=== PATIENT | male | born 1955 | race Caucasian/White ===

== ENCOUNTER 2021-09-19 21:38 | Emergency (ER) | payer OTHER ==
[2021-09-19] MEDS ORDERED: NA CHLORIDE 0.9% 1,000 ML ONE (22:04)
--- NOTE | 2021-09-19 22:04 | RAD REPORT ---
EXAM DESCRIPTION: Lele Single View09/19/2021 9:55 pm CLINICAL HISTORY: Chest pain COMPARISON: none FINDINGS: The left base is hazy. Remainder lungs appear clear. Heart is normal size IMPRESSION: Left base is hazy most likely secondary to overlying soft tissue less likely pathology. If clinically indicated further evaluation with PA and lateral chest series be obtained
--- NOTE | 2021-09-19 22:14 | RAD REPORT ---
EXAM DESCRIPTION: CT - Head Brain Wo Cont - 09/19/2021 10:03 pm CLINICAL HISTORY: Dizziness COMPARISON: None TECHNIQUE: Computed axial tomography of the head was obtained. IV contrast was not requested. All CT scans are performed using dose optimization technique as appropriate and may include automated exposure control or mA/KV adjustment according to patient size. FINDINGS: Several hypodense areas are present within the right temporal, right frontal, right occipi regina and right parietal lobes. Right basal ganglia and right internal capsule also involves. These rep resent lesions surrounded by vasogenic edema. The right lateral ventricle is compressed. There is shift of the midline structures 8 millimeters. An intracranial bleed is not noted Fluid within the sinuses/ mastoids is not seen. IMPRESSION: The patient most likely has metastases with surrounding vasogenic edema. MRI brain with contrast is recommended for further evaluation.
[2021-09-19 22:44] LABS: Absolute Lymphocytes (CBC) 2.7 K/uL (0.7-4.9); Hematocrit 44.9 % (39.6-49.0); Lymphocytes % 28.8 % (15.3-44.8); MCV 91.2 fL (80-100); MPV 9.5 fL (7.6-11.3); RBC Red Blood Cell Count 4.92 M/uL (4.33-5.43)
[2021-09-19] MEDS ORDERED: dexAMETHasone 10 MG/ML VIAL ONE (22:59)
[2021-09-19 23:03] LABS: Potassium 3.6 mmol/L (3.5-5.1); Troponin High Sensitivity 7.1 pg/mL (<58.9)
--- NOTE | 2021-09-19 23:19 | EDPHYS ---
Physician Documentation [facility] Name: Antoine Ledezma Jr Age: 66 yrs Sex: Male : 1955 Arrival Date: 09/19/2021 Time: 21:39 Bed 7 Private MD: ED Physician Gary Valdez HPI: 09/19 21:49 This 66 yrs old Male presents to ER via EMS with complaints of Feeling light headed and jl9 falling. Patient reports that he has been in the heat the last few days and had not had anything to eat when the incident occured. Patient denies LOC. . 21:49 Onset: The symptoms/episode began/occurred just prior to arrival. Severity of symptoms: jl9 Pain is currently a 0 / 10. Patient reports feeling better at this time. . 23:16 Patient recalls that he had a similar episode 1 week ago. . jl9 Historical: - Allergies: 21:41 PENICILLINS; aa9 - PMHx: 21:41 Hypertensive disorder; Diabetes mellitus; aa9 - Immunization history:: Client reports receiving the 2nd dose of the Covid vaccine. - Social history:: Smoking status: unknown. ROS: 21:50 Constitutional: Negative for fever, chills, and weight loss, Eyes: Negative for injury, jl9 pain, redness, and discharge, ENT: Negative for injury, pain, and discharge, Neck: Negative for injury, pain, and swelling, Cardiovascular: Negative for chest pain, palpitations, and edema, Respiratory: Negative for shortness of breath, cough, wheezing, and pleuritic chest pain, Abdomen/GI: Negative for abdominal pain, nausea, vomiting, diarrhea, and constipation, Back: Negative for injury and pain, MS/Extremity: Negative for injury and deformity, Skin: Negative for injury, rash, and discoloration. 21:50 Neuro: Negative for altered mental status, dizziness, gait disturbance, syncope, tingling. 21:51 Psych: Negative for depression, anxiety, suicide ideation, homicidal ideation, and jl9 hallucinations, Allergy/Immunology: Negative for hives, rash, and allergies, Endocrine: Negative for neck swelling, polydipsia, polyuria, polyphagia, and marked weight changes, Hematologic/Lymphatic: Negative for swollen nodes, abnormal bleeding, and unusual bruising. Exam: 21:51 Constitutional: This is a well developed, well nourished patient who is awake, alert, jl9 and in no acute distress. Head/Face: Normocephalic, atraumatic. Eyes: Pupils equal round and reactive to light, extra-ocular motions intact. Lids and lashes normal. Conjunctiva and sclera are non-icteric and not injected. Cornea within normal limits. Periorbital areas with no swelling, redness, or edema. ENT: Mucous membranes moist. Neck: Trachea midline, no thyromegaly or masses palpated, and no cervical lymphadenopathy. Supple, full range of motion without nuchal rigidity, or vertebral point tenderness. No Meningismus. Chest/axilla: Normal chest wall appearance and motion. Nontender with no deformity. No lesions are appreciated. Cardiovascular: Regular rate and rhythm with a normal S1 and S2. No gallops, murmurs, or rubs. Normal PMI, no JVD. No pulse deficits. Respiratory: Lungs have equal breath sounds bilaterally, clear to auscultation and percussion. No rales, rhonchi or wheezes noted. No increased work of breathing, no retractions or nasal flaring. Abdomen/GI: Soft, non-tender, with normal bowel sounds. No distension or tympany. No guarding or rebound. No evidence of tenderness throughout. Back: No spinal tenderness. No costovertebral tenderness. Full range of motion. Skin: Warm, dry with normal turgor. Normal color with no rashes, no lesions, and no evidence of cellulitis. MS/ Extremity: Pulses equal, no cyanosis. Neurovascular intact. Full, normal range of motion. Neuro: Awake and alert, GCS 15, oriented to person, place, time, and situation. Cranial nerves II-XII grossly intact. Motor strength 5/5 in all extremities. Sensory grossly intact. Cerebellar exam normal. Normal gait. Psych: Awake, alert, with orientation to person, place and time. Behavior, mood, and affect are within normal limits. 22:25 Chest/axilla: jl9 22:25 ECG was reviewed by the Attending Physician. SB 56 BPM Vital Signs: 21:39 BP 137 / 77; Pulse 60; Resp 15 S; Temp 98.1(O); Pulse Ox 97% on R/A; Weight 113.4 kg tw5 (R); Height 6 ft. 1 in. (185.42 cm) (R); Pain 0/10; 21:43 BP 137 / 77; Pulse 60; Resp 15; Temp 98.1(O); Pulse Ox 97% on R/A; Weight 113.4 kg (R); aa9 Height 6 ft. 1 in. (185.42 cm) (R); Pain 0/10; 23:05 BP 145 / 72; Pulse 57; Resp 15 S; Pulse Ox 96% on R/A; as6 21:43 Body Mass Index 32.98 (113.40 kg, 185.42 cm) aa9 MDM: 21:44 Patient medically screened. jl9 21:52 Data reviewed: vital signs, nurses notes. jl9 23:13 Counseling: I had a detailed discussion with the patient and/or guardian regarding: the jl9 historical points, exam findings, and any diagnostic results supporting the discharge/admit diagnosis, lab results, radiology results, the need to transfer to another facility, for higher level of care, to return to the emergency department if symptoms worsen or persist or if there are any questions or concerns that arise at home, Discussed findings of CT with patient and the need for transfer. Dr. Valdez also spoke to the patient. The patient adamantly declines the transfer and wishes to go home. Patient aware of the possibility of and /or neurological damage. Patient still wants to go home. . Refusal of service: The patient/guardian displays adequate decision making capability and despite a detailed discussion of alternatives, benefits, risks, and consequences refuses: Admission to the hospital for further work-up and treatment. 23:36 ED course: Spoke with patient at length regarding abnormal ct head and findings rn consistent with possible masses and possibility of metastases. Explained at length the need for admission/transfer/steroids, and explained possibilities of worsening and even if went home like he wants to. ASPEN posada also spoke with him on several occasions and patient insists that he is going home. States he does not have hx of cancer or family hx of cancer and does not believe this to be cancer. Has appt with PCP in AM and would like to f/u. States will return if anything worsens. Pt signed AMA form, but was informed discharge. Understands risks and benefits of transfer vs going home and still would like to go home. Images even shown to patient. Nursing also spoke to patient and refuses further care or transfer. . 09/20 16:06 ED course: Patient called and requested his daughter be informed of his CT scans, ms3 chart, and labs. Called Jocelin Ledezma at to discuss CT results and encouraged her to have her father return to [facility] or [facility]. Discussed with her that her father is predisposed to seizures due to lesions in his brain and should not drive, operate heavy machinery, take a bath, or place himself in harms way. Daughter states she would like to have a neurologist review his CT. Patient's daughter transferred to medical records.. 09/19 21:46 Order name: Basic Metabolic Panel; Complete Time: 15:50 09/19 21:46 Order name: CBC with Diff; Complete Time: 22:54 09/19 21:46 Order name: CT Head Brain wo Cont; Complete Time: 22:28 09/19 21:46 Order name: Troponin HS; Complete Time: 15:50 09/19 21:46 Order name: XRAY Chest (1 view); Complete Time: 22:28 09/19 22:45 Order name: COVID-19 SARS RT PCR (Document "Date of Onset" if Symptomatic); Complete bb Time: 15:50 09/19 21:46 Order name: EKG; Complete Time: 21:47 09/19 21:46 Order name: Cardiac monitoring; Complete Time: 21:57 09/19 21:46 Order name: EKG - Nurse/Tech; Complete Time: 22:20 09/19 21:46 Order name: IV Saline Lock; Complete Time: 22:20 09/19 21:46 Order name: Labs collected and sent; Complete Time: 22:20 09/19 21:46 Order name: O2 Per Protocol; Complete Time: 21:57 09/19 21:46 Order name: O2 Sat Monitoring; Complete Time: 21:57 Administered Medications: 09/19 12:17 Drug: NS 0.9% 1000 ml Route: IV; Rate: 125 ml/hr; Site: right antecubital; aa9 22:53 Drug: Decadron - Dexamethasone 10 mg Route: IVP; Site: right antecubital; as6 Disposition: 09/20 04:25 Co-signature as Attending Physician, Gary Valdez MD. rn Disposition Summary: 09/19/21 23:18 Discharge Ordered Location: Home jl9 Condition: Serious jl9 Diagnosis - Abnormal brain scan jl9 Followup: jl9 - With: Private Physician - When: Upon discharge from the Emergency Department - Reason: Worsening of condition, Further diagnostic work-up, Continuance of care, Re-evaluation by your physician Discharge Instructions: - Discharge Summary Sheet jl9 - Cerebral Edema, Adult jl9 - Metastatic Brain Tumor, Adult jl9 Forms: - Medication Reconciliation Form jl9 - Thank You Letter jl9 - Antibiotic Education jl9 - Prescription Opioid Use jl9 Prescriptions: - Medrol (Salvatore) 4 mg Oral Tablets, Dose Pack - take 1 tablet by ORAL route as directed - follow package instructions; 1 jl9 packet; Refills: 0, Product Selection Permitted Signatures: Dispatcher [employer] EDGary Estrada MD MD rn Sims, Marcus, DO DO ms3 Danielle Love tw5 Vikram Pires RN RN as6 Simba Posada jl9 Hanna Tran, MIKAEL RN aa9 Corrections: (The following items were deleted from the chart) 09/19 21:43 21:41 Allergies: No Known Allergies; aa9 aa9
--- NOTE | 2021-09-19 23:19 | ER ---
Nurse's Notes [facility] Name: Antoine Ledezma Jr Age: 66 yrs Sex: Male : 1955 Arrival Date: 09/19/2021 Time: 21:39 Bed 7 Private MD: Diagnosis: Abnormal brain scan Presentation: 09/19 21:39 Chief complaint: Patient states: lost my balance and fell over the curb. Coronavirus tw5 screen: Vaccine status: Patient reports receiving the 2nd dose of the covid vaccine. At this time, the client does not indicate any symptoms associated with coronavirus-19. Ebola Screen: No symptoms or risks identified at this time. Initial Sepsis Screen: Does the patient meet any 2 criteria? No. Patient's initial sepsis screen is negative. Does the patient have a suspected source of infection? No. Patient's initial sepsis screen is negative. Risk Assessment: Do you want to hurt yourself or someone else? Patient reports no desire to harm self or others. Onset of symptoms was September 19, 2021. 21:39 Method Of Arrival: EMS: [facility] tw5 21:39 Acuity: AWA 3 tw5 21:39 Note EMS states client spun around looking for his car and tripped over the curb. aa9 Bystander states he hit his head on the concrete. Client recalls events, denies head pain. Currently denies dizziness. Triage Assessment: 21:43 General: Appears in no apparent distress. comfortable, unkempt, Behavior is calm, aa9 cooperative. Pain: Denies pain. Historical: - Allergies: 21:41 PENICILLINS; aa9 - PMHx: 21:41 Hypertensive disorder; Diabetes mellitus; aa9 - Immunization history:: Client reports receiving the 2nd dose of the Covid vaccine. - Social history:: Smoking status: unknown. Screenin/19 00:01 Abuse screen:. Abuse screen: Denies threats or abuse. Denies injuries from another. tw5 Nutritional screening: No deficits noted. Tuberculosis screening: No symptoms or risk factors identified. Fall Risk Fall in past 12 months (25 points). Assessment: 09/19 21:52 General: Appears in no apparent distress. comfortable, unkempt, Behavior is calm, aa9 cooperative. Pain: Denies pain. Vital Signs: 21:39 BP 137 / 77; Pulse 60; Resp 15 S; Temp 98.1(O); Pulse Ox 97% on R/A; Weight 113.4 kg tw5 (R); Height 6 ft. 1 in. (185.42 cm) (R); Pain 0/10; 21:43 BP 137 / 77; Pulse 60; Resp 15; Temp 98.1(O); Pulse Ox 97% on R/A; Weight 113.4 kg (R); aa9 Height 6 ft. 1 in. (185.42 cm) (R); Pain 0/10; 23:05 BP 145 / 72; Pulse 57; Resp 15 S; Pulse Ox 96% on R/A; as6 21:43 Body Mass Index 32.98 (113.40 kg, 185.42 cm) aa9 ED Course: 21:39 Patient arrived in ED. as6 21:41 Triage completed. tw5 21:41 Hanna Tran, RN is Primary Nurse. aa9 21:42 Simba Hernandez is PHCP. jl9 21:42 Gary Valdez MD is Attending Physician. jl9 21:57 XRAY Chest (1 view) In Process Unspecified. EDMS 22:04 CT Head Brain wo Cont In Process Unspecified. EDMS 22:15 Inserted saline lock: 18 gauge in right antecubital area, using aseptic technique. aa9 Blood collected. 22:20 Basic Metabolic Panel Sent. aa9 22:20 CBC with Diff Sent. aa9 22:20 Troponin HS Sent. aa9 09/20 00:01 Assist provider with bone marrow aspiration. IV discontinued, intact, bleeding tw5 controlled, No redness/swelling at site. Pressure dressing applied. 00:02 Arm band placed on right wrist. tw5 00:02 Patient has correct armband on for positive identification. tw5 Administered Medications: 09/19 12:17 Drug: NS 0.9% 1000 ml Route: IV; Rate: 125 ml/hr; Site: right antecubital; aa9 22:53 Drug: Decadron - Dexamethasone 10 mg Route: IVP; Site: right antecubital; as6 Medication: 09/20 00:02 VIS not applicable for this client. tw5 Outcome: 09/19 23:18 Discharge ordered by . jl9 09/20 00:02 Discharged to home ambulatory, with taxi tw5 Condition: unchanged Discharge instructions given to patient, Instructed on discharge instructions, follow up and referral plans. Demonstrated understanding of instructions, follow-up care, medications, Prescriptions given X 1. 00:02 Patient left the ED. tw5 Signatures: Dispatcher [employer] HEIDIDanielle Patterson tw5 Vikram Pires RN RN as6 Simab Hernandez jl9 Hanna Tran, RN RN aa9 Corrections: (The following items were deleted from the chart) 09/19 21:43 21:41 Allergies: No Known Allergies; aa9 aa9
[2021-09-20 00:14] VITALS: TEMP 98.1
[2021-09-20 00:17] VITALS: BP 145/72; O2SAT 96
--- NOTE | 2021-09-20 08:14 | EKG ---
Test Date: 2021-09-19 Test Time: 22:13:00 Loss Prevention Analyst: GIUSEPPE MEASUREMENT RESULTS: Intervals: Rate: 56 IN: 182 QRSD: 100 QT: 442 QTc: 426 [place]: P: 39 IN: 182 QRS: -32 T: 50 INTERPRETIVE STATEMENTS: Sinus bradycardia Left axis deviation Incomplete right bundle branch block Left ventricular hypertrophy with repolarization abnormality Abnormal ECG No previous ECG available for comparison Electronically Signed On 09-20-21 08:12:27 CDT by Hernesto Patiño
== END 2021-09-20 00:02 | disposition home or self-care (01) ==
LOC: ER 21:38
DX: R94.02 Abnormal brain scan (principal); E11.9 Type 2 diabetes mellitus without complications; I10 Essential (primary) hypertension; Z20.822 Contact with and (suspected) exposure to COVID-19; Z88.0 Allergy status to penicillin
CPT/HCPCS: 93005; 85025; 80048; 36415; 84484; 70450; 71045; 96374; 99285; U0003; J1100; J7030

== ENCOUNTER 2021-09-21 12:56 | Emergency (ER) | payer OTHER ==
--- NOTE | 2021-09-21 13:27 | EDPHYS ---
Physician Documentation [facility] Name: Antoine Ledezma Jr Age: 66 yrs Sex: Male : 1955 Arrival Date: 09/21/2021 Time: 12:57 Bed 6 Private MD: ED Physician Tristin Little HPI: 09/21 13:39 This 66 yrs old Male presents to ER via Unassigned with complaints of Weakness, ms3 fatigue, Vomiting. 13:40 The patient presents to the emergency department with nausea, vomiting. Onset: The ms3 symptoms/episode began/occurred today. Possible causes: Possible brain metastasis noted on CT Head on 09/20/2021. The symptoms are aggravated by nothing. The symptoms are alleviated by nothing. Associated signs and symptoms: Pertinent negatives: fever. Severity of symptoms: At their worst the symptoms were mild in the emergency department the symptoms are unchanged Pain is currently a 0 / 10. Historical: - Allergies: 13:47 PENICILLINS; bm7 - Home Meds: 13:47 Unable to obtain [Active]; bm7 - PMHx: 13:47 diabetes mellitus; Hypertensive disorder; bm7 - Immunization history:: Adult Immunizations unknown. - Social history:: Smoking status: Patient/guardian denies using. - Code Status:: unknown. ROS: 13:40 Constitutional: Negative for fever, and chills. Eyes: Negative for injury, pain, ms3 redness, and discharge, Neck: Negative for injury, pain, and swelling, Cardiovascular: Negative for chest pain, and palpitations. Respiratory: Negative for shortness of breath, cough, wheezing, and pleuritic chest pain. 13:40 Abdomen/GI: Positive for nausea and vomiting. 13:40 MS/extremity: Positive for Generalized weakness. 13:40 Neuro: Positive for headache. Exam: 13:40 Constitutional: This is a well developed, well nourished patient who is awake, alert, ms3 and in no acute distress. Head/Face: Normocephalic, atraumatic. Neck: Trachea midline, no cervical lymphadenopathy. Supple, full range of motion without nuchal rigidity, or vertebral point tenderness. No Meningismus. Chest/axilla: Normal chest wall appearance and motion. Nontender with no deformity. Cardiovascular: Regular rate and rhythm with a normal S1 and S2. No gallops, murmurs, or rubs. Normal PMI, no JVD. No pulse deficits. Respiratory: Lungs have equal breath sounds bilaterally, clear to auscultation and percussion. No rales, rhonchi or wheezes noted. No increased work of breathing, no retractions or nasal flaring. Abdomen/GI: Soft, non-tender, with normal bowel sounds. No distension or tympany. No guarding or rebound. No evidence of tenderness throughout. Skin: Warm, dry with normal turgor. Normal color with no rashes, no lesions, and no evidence of cellulitis. Psych: Awake, alert, with orientation to person, place and time. Behavior, mood, and affect are within normal limits. 14:03 ECG was reviewed by the Attending Physician. ms3 Vital Signs: 13:43 BP 138 / 79; Pulse 50; Resp 16; Temp 97.7(TE); Pulse Ox 97% on R/A; Weight 113.4 kg bm7 (R); Height 6 ft. 1 in. (185.42 cm); Pain 0/10; 15:05 BP 110 / 63; Pulse 48; Resp 16; Pulse Ox 97% on R/A; jg9 15:59 BP 127 / 81; Pulse 46; Resp 16; Pulse Ox 97% on R/A; kr3 13:43 Body Mass Index 32.98 (113.40 kg, 185.42 cm) bm7 NIH Stroke Scale Scores: 14:06 NIHSS Score: 0 ll1 MDM: 13:27 Patient medically screened. ms3 13:40 Differential diagnosis: gastritis, gastroenteritis, Brain metastasis. ms3 14:23 Data reviewed: vital signs, nurses notes, lab test result(s), and as a result, I will ms3 transfer patient. Counseling: I had a detailed discussion with the patient and/or guardian regarding: the historical points, exam findings, and any diagnostic results supporting the discharge/admit diagnosis, lab results, the need to transfer to another facility. ED course: [facility] at capacity at this time. Discussed transfer to [facility] with patient and his daughter and they understand/ agree with plan.. 09/21 13:27 Order name: Basic Metabolic Panel; Complete Time: 14:08 ms3 09/21 13:27 Order name: CBC with Diff; Complete Time: 14:08 ms3 09/21 13:27 Order name: EKG; Complete Time: 13:28 ms3 09/21 14:07 Order name: Glucose, Ancillary Testing; Complete Time: 14:08 EDMS 09/21 13:27 Order name: Cardiac monitoring; Complete Time: 13:52 ms3 09/21 13:27 Order name: IV Saline Lock; Complete Time: 13:52 ms3 09/21 13:27 Order name: Labs collected and sent; Complete Time: 13:52 ms3 09/21 13:27 Order name: O2 Per Protocol; Complete Time: 13:56 ms3 09/21 13:27 Order name: O2 Sat Monitoring; Complete Time: 13:52 ms3 EC:03 Rate is 45 beats/min. Rhythm is regular. QRS [place] is Normal. Clinical impression: Sinus ms3 bradycardia. Interpreted by me. Reviewed by me. Administered Medications: 14:05 Drug: Dexamethasone 10 mg Route: IVP; Site: right antecubital; ll1 16:03 Follow up: Response: No adverse reaction jg9 Point of Care Testing: Blood Glucose: 16:06 Blood Glucose: 137 mg/dL; kr3 Ranges: Critical Glucose Levels:Adult <50 mg/dl or >400 mg/dl <40 mg/dl or >180 mg/dl Disposition Summary: 09/21/21 13:27 Transfer Ordered Transfer Location: [facility] ms3 Reason: Higher level of care ms3 Condition: Stable ms3 Problem: new ms3 Symptoms: are unchanged ms3 Accepting Physician: (09/21/21 16:09) kr3 Diagnosis - Brain tumor ms3 Forms: - Medication Reconciliation Form ms3 - SBAR form ms3 NIH Stroke Scale - NIH Stroke Score Date: 09/21/2021 Time: 14:06 Total Score = 0 1a. Level of Consciousness (LOC) - 0(Alert) 1b. Level of Consciousness (LOC) (Month \T\ Age) - 0(Both) 1c. LOC Commands (Open \T\ Closes Eyes/V[employer]) - 0(Both) 2. Best Gaze (Lateral Gaze Paresis) - 0(Normal) 3. Visual Field Loss - 0(No visual loss) 4. Facial Palsy - 0(Normal) 5a. Left Arm: Motor (10-second hold) - 0(No drift) 5b. Right Arm: Motor (10-second hold) - 0(No drift) 6a. Left Leg: Motor (5-second hold - always test supine) - 0(No drift) 6b. Right Leg: Motor (5-second hold - always test supine) - 0(No drift) 7. Limb Ataxia (finger/nose \T\ heel/sharma - test with eyes open) - 0(Absent) 8. Sensory Loss (pinprick arms/legs/face) - 0(Normal) 9. Best Language: Aphasia (description/naming/reading) - 0(No aphasia) 10. Dysarthria (speech clarity - read or repeat words) - 0(Normal) 11. Extinction and Inattention (visual/tactile/auditory/spatial/personal) - 0(No abnormality) Initials: ll1 Signatures: Dispatcher [employer] Wenceslao Heck, RN RN ll1 Tristin Little DO DO ms3 Erum Almeida RN RN bm7 Juanita Sapp RN RN kr3 Jocelin Manriquez RN jg9 Corrections: (The following items were deleted from the chart) 16:09 13:27 ms3 kr3
[2021-09-21 13:55] LABS: Absolute Lymphocytes (CBC) 2.7 K/uL (0.7-4.9); Hematocrit 47.5 % (39.6-49.0); Lymphocytes % 26.6 % (15.3-44.8); MCV 93.3 fL (80-100); MPV 9.6 fL (7.6-11.3); RBC Red Blood Cell Count 5.09 M/uL (4.33-5.43)
[2021-09-21 14:03] LABS: Potassium 3.9 mmol/L (3.5-5.1)
[2021-09-21] MEDS ORDERED: dexAMETHasone 10 MG/ML VIAL ONE (14:05)
--- NOTE | 2021-09-21 16:10 | ER ---
Nurse's Notes [facility] Name: Antoine Ledezma Jr Age: 66 yrs Sex: Male : 1955 Arrival Date: 09/21/2021 Time: 12:57 Bed 6 Private MD: Diagnosis: Brain tumor Presentation: 09/21 13:43 Chief complaint: Patient states: Daughter states he was admitted yesterday for an bm7 abnormal brain scan and he left AMA. He has been confused since I arrived and I am concerned.. Coronavirus screen: Client denies travel out of the [place] in the last 14 days. Ebola Screen: No symptoms or risks identified at this time. Onset of symptoms was September 20, 2021 at 08:00. Care prior to arrival: pt left the hospital AMA yesterday. 13:43 Method Of Arrival: Wheelchair bm7 13:43 Acuity: AWA 2 bm7 14:07 No acute neurological deficit is noted. The patients blood glucose was checked before ll1 arriving to the hospital and was found to be normal. Initial Sepsis Screen: Does the patient meet any 2 criteria? No. Patient's initial sepsis screen is negative. Does the patient have a suspected source of infection? No. Patient's initial sepsis screen is negative. Risk Assessment: Do you want to hurt yourself or someone else? Patient reports no desire to harm self or others. Triage Assessment: 13:47 The onset of the patients symptoms was more than six hours ago. General: Appears in no bm7 apparent distress. unkempt, Behavior is calm, cooperative, slight confusion and a delay in speech . Pain: Denies pain. EENT: No deficits noted. No signs and/or symptoms were reported regarding the EENT system. Neuro: Level of Consciousness is awake, alert, confused, Oriented to person, place, intermittent confusion . Speech slight intermittent slurring . Facial symmetry appears normal, Pupils are PERRLA, Reports dizziness, since yesteday nausea. Cardiovascular: Heart tones S1 S2 Capillary refill < 3 seconds Patient's skin is warm and dry. Rhythm is sinus bradycardia. Respiratory: No deficits noted. GI: Abdomen is round non-distended. : No deficits noted. No signs and/or symptoms were reported regarding the genitourinary system. Derm: No deficits noted. No signs and/or symptoms reported regarding the dermatologic system. 16:03 The onset of the patients symptoms was. jg9 16:05 The onset of the patients symptoms was September 18, 2021 at 07:00. kr3 Stroke Activation: Symptom onset > 6 hours Physician: Stroke Attending; Name: ; Notified At: ; Arrived At: Physician: Chief Stroke Resident; Name: ; Notified At: ; Arrived At: Physician: Stroke Resident; Name: ; Notified At: ; Arrived At: Physician: ED Attending; Name: ; Notified At: ; Arrived At: Physician: ED Resident; Name: ; Notified At: ; Arrived At: Historical: - Allergies: 13:47 PENICILLINS; bm7 - Home Meds: 13:47 Unable to obtain [Active]; bm7 - PMHx: 13:47 diabetes mellitus; Hypertensive disorder; bm7 - Immunization history:: Adult Immunizations unknown. - Social history:: Smoking status: Patient/guardian denies using. - Code Status:: unknown. Screenin:07 Abuse screen: Denies threats or abuse. Nutritional screening: No deficits noted. ll1 Tuberculosis screening: No symptoms or risk factors identified. Fall Risk IV access (20 points). Total Major Fall Scale indicates No Risk (0-24 pts). Assessment: 14:06 VAN Scoring: Arm Drift: Patients demonstrates NO arm weakness. Patient is VAN Negative. ll1 Aphasia: No aphasia noted. Patient has been NPO before screening. The patient is alert, and able to follow commands. The patient does not exhibit slurred or garbled speech. The patient is not exhibiting difficulty speaking. The patient does not exhibit difficulty understanding words. The patient is able to swallow own secretions with no drooling or need for suction. TNKase (Tenecteplase) Screening: Contraindications: Coma, severe obtundation, fixed pupils, deviation, or complete hemiplegia: Yes. 14:57 Patient tolerated one teaspoon of water. No drooling, immediate coughing, gurgling, or kr3 clearing of the throat was noted. The patient tolerated 90mL of water. No drooling, immediate coughing, gurgling, or clearing of the throat was noted. The patient passed the bedside swallow screening. Oral medications may be given as ordered. Contact Physician for further diet orders. 15:05 Reassessment: No changes from previously documented assessment. Patient and/or family jg9 updated on plan of care and expected duration. Pain level reassessed. 16:06 Provider notified of bedside swallow screening results: Tristin Little DO. kr3 Vital Signs: 13:43 BP 138 / 79; Pulse 50; Resp 16; Temp 97.7(TE); Pulse Ox 97% on R/A; Weight 113.4 kg bm7 (R); Height 6 ft. 1 in. (185.42 cm); Pain 0/10; 15:05 BP 110 / 63; Pulse 48; Resp 16; Pulse Ox 97% on R/A; jg9 15:59 BP 127 / 81; Pulse 46; Resp 16; Pulse Ox 97% on R/A; kr3 13:43 Body Mass Index 32.98 (113.40 kg, 185.42 cm) bm7 NIH Stroke Scale Scores: 14:06 NIHSS Score: 0 ll1 ED Course: 12:57 Patient arrived in ED. as 12:59 Bailey [facility]ck[facility]C [facility] kb 12:59 Tristin Little DO is Attending Physician. kb 13:26 Tristin Little DO is Attending Physician. ms3 13:34 Arm band placed on Patient placed in an exam room, on a stretcher. ll1 13:42 Jocelin Manriquez, MIKAEL is Primary Nurse. jg9 13:47 Triage completed. bm7 13:50 Patient has correct armband on for positive identification. Placed in gown. Call light bm7 in reach. Adult w/ patient. Client placed on continuous cardiac and pulse oximetry monitoring. NIBP monitoring applied. quality assurance monitor final on. 13:50 Initial lab(s) drawn, by nj, sent to lab. Inserted saline lock: 20 gauge in right bm7 antecubital area, using aseptic technique. Blood collected. 13:56 Wenceslao Mccallum, RN is Primary Nurse. ll1 14:13 initiated transfer to [facility]. bd 14:23 pt accepted in transfer to [facility] by dr Pires, admin approval given by Ema Campo. 15:59 No provider procedures requiring assistance completed. Patient transferred, IV remains kr3 in place. Administered Medications: 14:05 Drug: Dexamethasone 10 mg Route: IVP; Site: right antecubital; ll1 16:03 Follow up: Response: No adverse reaction jg9 Medication: 16:05 VIS not applicable for this client. kr3 Point of Care Testing: Blood Glucose: 16:06 Blood Glucose: 137 mg/dL; kr3 Ranges: Outcome: 13:27 ER care complete, transfer ordered by . ms3 14:56 Transferred by ground EMS to [facility], Transfer form completed. Note: kr3 report called to Tristin Henriquez at [facility] 14:56 Condition: stable 14:56 Instructed on the need for transfer. 16:09 Patient left the ED. kr3 NIH Stroke Scale - NIH Stroke Score Date: 09/21/2021 Time: 14:06 Total Score = 0 1a. Level of Consciousness (LOC) - 0(Alert) 1b. Level of Consciousness (LOC) (Month \T\ Age) - 0(Both) 1c. LOC Commands (Open \T\ Closes Eyes/Home Supervisor) - 0(Both) 2. Best Gaze (Lateral Gaze Paresis) - 0(Normal) 3. Visual Field Loss - 0(No visual loss) 4. Facial Palsy - 0(Normal) 5a. Left Arm: Motor (10-second hold) - 0(No drift) 5b. Right Arm: Motor (10-second hold) - 0(No drift) 6a. Left Leg: Motor (5-second hold - always test supine) - 0(No drift) 6b. Right Leg: Motor (5-second hold - always test supine) - 0(No drift) 7. Limb Ataxia (finger/nose \T\ heel/sharma - test with eyes open) - 0(Absent) 8. Sensory Loss (pinprick arms/legs/face) - 0(Normal) 9. Best Language: Aphasia (description/naming/reading) - 0(No aphasia) 10. Dysarthria (speech clarity - read or repeat words) - 0(Normal) 11. Extinction and Inattention (visual/tactile/auditory/spatial/personal) - 0(No abnormality) Initials: ll1 Signatures: Bailey Mckinley, CAN INTAKE WORKER-C CAN INTAKE WORKER-Ckb Ansley Kowalski Amelia as Lewis, Lynsay, RN RN ll1 Tristin Little DO DO ms3 Erum Almeida, RN RN bm7 Jocelin Manriquez RN RN jg9 Sekou, Juanita, RN RN kr3
[2021-09-21 16:24] VITALS: TEMP 97.7; O2SAT 97
[2021-09-21 16:31] VITALS: BP 127/81
--- NOTE | 2021-09-22 08:49 | EKG ---
Test Date: 2021-09-21 Test Time: 14:03:25 Personnel Clerks Supervisor: MARILYN MEASUREMENT RESULTS: Intervals: Rate: 45 NE: 182 QRSD: 98 QT: 470 QTc: 406 [place]: P: 32 NE: 182 QRS: -24 T: 10 INTERPRETIVE STATEMENTS: Marked sinus bradycardia Incomplete right bundle branch block Moderate voltage criteria for LVH, may be normal variant Abnormal ECG Compared to ECG 09/19/2021 22:13:00 Left-axis deviation no longer present Early repolarization no longer present Electronically Signed On 09-22-21 08:47:01 CDT by Hernesto Patiño
== END 2021-09-21 16:09 | disposition short-term general hospital (02) ==
LOC: ER 12:56
DX: D49.6 Neoplasm of unspecified behavior of brain (principal); R11.2 Nausea with vomiting, unspecified; E11.9 Type 2 diabetes mellitus without complications; I10 Essential (primary) hypertension; Z88.0 Allergy status to penicillin
CPT/HCPCS: 85025; 80048; 36415; 82947; J1100; 93005